=== PATIENT | male | born 1985 | race Caucasian/White ===

== ENCOUNTER 2025-02-06 11:02 | Outpatient (CLI) | payer OTHER, SELFPAY ==
--- NOTE | ~2025-02-06 | XR_ITS ---
XR foot LT 2V Ordering provider: Kaylynn Ritchie, [place] History: . pain in left toe . Comparison: None. FINDINGS: BONES: No acute fracture or dislocation. JOINT SPACES: Normal. No tarsal coalition. SOFT TISSUES: Normal. IMPRESSION: No acute osseous abnormality left foot. Reviewed, dictated and finalized at location A.
== END 2025-02-06 11:03 | disposition home or self-care (01) ==
LOC: GOSHIMG 11:05
PROVIDERS: PCP Physician Assistant; Visit Provider Physician Assistant
DX: M79.675 Pain in left toe(s) (principal)
CPT/HCPCS: 73620